=== PATIENT | male | born 1965 | race Caucasian/White ===

== ENCOUNTER 2019-05-18 19:45 | Emergency (ER) | payer OTHER, MEDICAID, SELFPAY ==
[2019-05-18] VITALS (29 sets, daily range): BP systolic 64–216; BP diastolic 39–158; PULSE 50–98; RESP 12–48; TEMP 32–36.8; O2SAT 92–100
--- NOTE | 2019-05-18 19:45 | DI.RAD.S_ITS ---
PROCEDURE: XR CHEST 1V INDICATIONS: Pulmonary edema TECHNIQUE: One view of the chest was acquired. COMPARISON: None. FINDINGS: Surgical changes and devices: Postsurgical changes are demonstrated in the mediastinum with multiple median sternotomy wires. Lungs and pleura: There are extensive bilateral interstitial opacities and pulmonary vascular prominence compatible with pulmonary edema. There are areas of confluence in the lung bases. No pleural effusions or pneumothorax. Mediastinum: Mediastinal contours appear prominent likely due to technique. Heart size is mildly enlarged. Bones and chest wall: No suspicious bony lesions. Overlying soft tissues appear unremarkable. IMPRESSION: 1. Extensive bilateral opacities consistent with a pulmonary edema. Findings may be cardiogenic or noncardiogenic in etiology such as from an atypical infection. Dictated by: Alok Herring M.D. on 05/18/2019 at 19:57 Approved by: Alok Herring M.D. on 05/18/2019 at 20:00
--- NOTE | 2019-05-18 19:49 | ED_ITS ---
HPI - SOB/Dyspnea General Chief Complaint: Shortness of Breath/Dyspnea Time Seen by Provider: 05/18/19 19:48 Source: patient Mode of arrival: Ambulatory Limitations: no limitations History of Present Illness HPI Narrative: The patient currently resides in a care facility adjacent to the hospital. Paramedics were called due to respiratory distress. The patient has no associated chest pain. He has a history of 2 presentations at [facility]. He required intubation previously. On the 2nd presentation he was found to have diffuse CAD, CABG was performed. He has been compliant with medications. He can communicate minimally verbally due to the face mask is wearing, but indicates he has not felt ill. He denies URI symptoms. He denies fever, cough or abdominal discomfort. Additionally has a history of diabetes, paroxysmal atrial fib, and morbid obesity. He can communicate little additional history due to the clinical situation. [facility] from [facility] have been reviewed. Related Data Home Medications Medication Instructions Recorded Confirmed amiodarone 200 mg PO BID 05/18/19 05/18/19 apixaban [Eliquis] 5 mg PO BID 05/18/19 05/18/19 atorvastatin 10 mg PO BEDTIME 05/18/19 05/18/19 metformin 500 mg PO BID 05/18/19 05/18/19 metoprolol tartrate 25 mg PO BID 05/18/19 05/18/19 omeprazole 20 mg PO DAILY 05/18/19 05/18/19 potassium chloride 10 meq PO DAILY 05/18/19 05/18/19 tadalafil 5 mg PO DAILY 05/18/19 05/18/19 Allergies Allergy/AdvReac Type Severity Reaction Status Date / Time Penicillins Allergy Unknown Verified 05/18/19 19:52 Review of Systems Review of Systems ROS Unobtainable: All systems reviewed & are unremarkable except as noted in HPI and below Patient History Medical History (Updated 05/19/19 @ 00:49 by Rome Carnes MD) CHF (congestive heart failure) (Acute) Chronic GERD (Acute) Diabetes (Acute) High cholesterol (Acute) Hypertension (Acute) Myocardial infarct (Acute) Obesity (Acute) Surgical History (Updated 05/19/19 @ 00:28 by Rome Carnes MD) Hx of CABG (Acute) S/P triple vessel bypass (Acute) Social History (Updated 05/19/19 @ 00:28 by Rome Carnes MD) Smoking Status: Never smoker substance use type: does not use Exam Initial Vital Signs Initial Vital Signs: Vital Signs Temperature 98.2 F 05/18/19 19:40 Pulse Rate 83 05/18/19 19:40 Respiratory Rate 44 H 05/18/19 19:40 Blood Pressure 177/85 H 05/18/19 19:40 Pulse Oximetry 92 05/18/19 19:40 Const Other: The patient is alert, is on a BiPAP facemask. He mumbles some answers, but mostly response by using his thumbs and nodding his head. He is pale and diaphoretic. HENMT Head: normal to inspection, normocephalic and atraumatic Mouth: oral mucosae normal Throat: posterior oropharynx normal and other (Frothy white or pharyngeal drainage.) Eyes Pupils: PERRL and pupil size on the right 5 and on the left 5 EOM: EOM intact bilaterally Neck Other: Obese neck, I cannot detect JVD. Chest Other: Symmetric rise. Resp Effort & Inspection: abnormal respiratory pattern (Tachypnea.) Auscultation: rales bilaterally throughout Cardio Rate: regular rate Rhythm: regular rhythm Heart Sounds: S1 normal, S2 normal, no click, no gallops, no murmurs and no rubs Pulses: normal peripheral pulses GI Inspection: non-distended and obesity Palpation: soft, no hepatosplenomegaly, No guarding and No tender Auscultation: normal bowel sounds Back/Spine/Pelvis Other: Normal to inspection Skin General: no rashes or lesions noted and pallor Neuro General: alert Other: Poor ability to communicate, but appropriate responses. Extrem General: full ROM and edema (4+ bilateral) Psych Other: Mentation appropriate given the clinical condition. Procedures Intubation Intubation Complications: other Additional Comments: I administered RSI. The optometry assistant crew to the transfer perform the actual intubation. Procedural Sedation Patient Age: Patient is 5yrs or older Consent signed: No Time out performed: Yes Indication: other (Emergent intubation) ASA Class: III Mallampati Airway Classification: Class II Preparation: hand compositor applied, pulse oximeter, capnometry used, supplemental O2 applied, reversal agents at bedside, suction/airway equipment at bedside and IV secured IV Etomidate dose (mg): 40 ED Sedation Level: Deep Patient Tolerated Procedure: Well Complications: none Additional Comments: Following the etomidate, the patient was paralyzed with succinylcholine 100 mg IV. The transferring optometry assistant considered intubation. The optometry assistant then completed the intubation with my oversight. A 7.5 ETT was placed on the 1st pass. Cords visualized, the ETT tube was visualized passing through the cords. Following intubation lungs are symmetric bilaterally. The appropriate color change was obtained on the ETT monitoring tube. O2 sats quickly increased upper 90s. Chest x-ray confirmed ET T placement. Course Course Course Narrative: The patient arrived in respiratory distress, he was on CPAP upon arrival. O2 sats were apparently as low as 80 when paramedics were summoned. He was in the low 90s on CPAP. He was converted to BiPAP. He initially improved to upper 90s. Care was initiated for CHF. He was quickly started on topical nitro, then IV Lasix was given. A 2nd IV was established and was changed to an IV drip with nitroglycerin. A Gamez was placed, revealing significant urine output. Despite the efforts his O2 gradually dropped. Although the patient indicated he thought it was done will better, his O2 sats decreased to 80% with BiPAP. The decision to intubate was made. The t ransporting paramedics were still with us in the ER. I made medicine decisions, but the leading optometry assistant who considered intubation prior to transfer completed the intubation. A 7.5 ETT was placed on the 1st attempt. White foam was noted continually coming from the lungs. His airway was suctioned after intubation, showing significant improvement in the respiratory findings on exam. The patien t was initially hypertensive systolic to 100. After RSI, his blood pressure fell. With attempted sedation. He could not tolerate propofol or midazolam. Even a minimal amount of fentanyl IV seem to impact him. His blood pressure dropped as low as 60s. He was given a bolus of IV fluids. Pressors were entertained. However, his blood pressure increased to 109/56 prior to transfer. The patient despite the RSI was responsive prior to discharge. He can squeeze my hand on command. He not had that his breathing was improved. He continues deny chest pain with a head motion. The situation was discussed with Dr. Bonilla, no call watch crystal cutter with [facility]. I also discussed the case with the supervisor composing room, Dr. Melendez. Dr. Melendez has accepted the patient. EKG, x-ray, and labs were discussed. Despite no history of URI, and no fever, infection is a concern. The patient has a subtle elevated WBC count, and a subtle increase in lactic acid level. Reassuring as a normal procalcitonin level. Inappropriate sepsis fluid bolus could not be administered due to clinical condition. He was given IV Levaquin 750 mg. his time in the ER was prolonged due to the management, then arranging transportation. Repeat EKGs show no significant changes. There was a subtle increase in a 2nd troponin. At the time of discharge the patient sinus Reymundo with a rate in the 50s. Although had issues with hypotension, his blood pressure at time of transfer is 109/56. I discussed concerns with hypotension, although now his blood pressure recovered I do not anticipate problems, with the transferring paramedics. Although the patient seems to improved significantly, they will follow their protocols if needed. Orders Ordered: ED Orders 05/18/19 19:45 XR chest 1V Stat EKG-12 Lead Stat 05/18/19 19:46 Complete Blood Count AUTO DIFF Stat Comprehensive Metabolic Panel Stat Lactate (Lactic Acid) Stat NT-proBNP (BNP-Adult 18+) Stat Partial Thromboplastin Time Stat Procalcitonin Stat Prothrombin Time INR Stat Troponin & CK Cardiac Panel Stat 05/18/19 19:48 BiPAP Ventilatory Support RT PROTOCOL 05/18/19 20:05 Arterial Blood Gas Stat 05/18/19 20:15 Urinalysis and Microscopic Stat 05/18/19 20:36 XR chest 1V Stat Ventilator Order 05/18/19 20:37 Endotracheal tube suction As needed 05/18/19 20:45 Sputum Culture DAILY 05/18/19 21:51 Arterial Blood Gas Routine 05/18/19 22:07 EKG-12 Lead Stat 05/18/19 22:20 Blood Culture Stat 05/18/19 22:41 Trop I [Troponin I] Stat 05/19/19 20:45 Complete Blood Count AUTO DIFF DAILY Comprehensive Metabolic Panel DAILY Sputum Culture DAILY 05/20/19 20:45 Complete Blood Count AUTO DIFF DAILY Comprehensive Metabolic Panel DAILY Sputum Culture DAILY 05/21/19 20:45 Complete Blood Count AUTO DIFF DAILY Comprehensive Metabolic Panel DAILY 05/22/19 20:45 Complete Blood Count AUTO DIFF DAILY Comprehensive Metabolic Panel DAILY 05/23/19 20:45 Complete Blood Count AUTO DIFF DAILY Comprehensive Metabolic Panel DAILY 05/24/19 20:45 Complete Blood Count AUTO DIFF DAILY Comprehensive Metabolic Panel DAILY 05/25/19 20:45 Complete Blood Count AUTO DIFF DAILY Comprehensive Metabolic Panel DAILY 05/26/19 20:45 Complete Blood Count AUTO DIFF DAILY Comprehensive Metabolic Panel DAILY 05/27/19 20:45 Complete Blood Count AUTO DIFF DAILY Comprehensive Metabolic Panel DAILY 05/28/19 20:45 Complete Blood Count AUTO DIFF DAILY Comprehensive Metabolic Panel DAILY 05/29/19 20:45 Complete Blood Count AUTO DIFF DAILY Comprehensive Metabolic Panel DAILY 05/30/19 20:45 Complete Blood Count AUTO DIFF DAILY Comprehensive Metabolic Panel DAILY 05/31/19 20:45 Complete Blood Count AUTO DIFF DAILY Comprehensive Metabolic Panel DAILY Nitroglycerin (Nitroglycerin) 50 mg in 250 mls @ 1.5 mls/hr IV TITRATE BENNY; Protocol Last Titration: 05/18/19 23:09 Dose: 0 mcg/min, 0 mls/hr Documented by: Titration: 05/18/19 21:00 Dose: 0 mcg/min, 0 mls/hr Documented by: Admin: 05/18/19 20:22 Dose: 5 mcg/min, 1.5 mls/hr Documented by: MADDISON Sodium Chloride (Normal Saline 0.9%) 1,000 mls @ 100 mls/hr IV BOLUS ONE Stop: 05/19/19 06:30 Last Infusion: 05/19/19 00:07 Dose: 100 mls/hr Documented by: Infusion: 05/18/19 23:36 Dose: 100 mls/hr Documented by: Infusion: 05/18/19 23:23 Dose: 999 mls/hr Documented by: Infusion: 05/18/19 22:40 Dose: 100 mls/hr Documented by: Infusion: 05/18/19 22:15 Dose: 999 mls/hr Documented by: Infusion: 05/18/19 21:20 Dose: 50 mls/hr Documented by: Admin: 05/18/19 20:30 Dose: 100 mls/hr Documented by: MADDISON Fentanyl 1,000 mcg/ Dextrose 270 mls @ 24.861 mls/hr IV TITRATE BENNY; Protocol Last Titration: 05/19/19 00:07 Dose: 0.7 mcg/kg/hr, 24.861 mls/hr Documented by: Titration: 05/18/19 23:38 Dose: 0.7 mcg/kg/hr, 24.861 mls/hr Documented by: Titration: 05/18/19 23:23 Dose: 0 mcg/kg/hr, 0 mls/hr Documented by: Titration: 05/18/19 23:01 Dose: 0.7 mcg/kg/hr, 24.861 mls/hr Documented by: Titration: 05/18/19 22:08 Dose: 1 mcg/kg/hr, 35.516 mls/hr Documented by: Admin: 05/18/19 21:11 Dose: 0.7 mcg/kg/hr, 24.861 mls/hr Documented by: MADDISON Propofol (Propofol) 1,000 mg in 100 mls @ 15.785 mls/hr IV TITRATE BENNY; Protocol Last Titration: 05/18/19 22:15 Dose: 0 mcg/kg/min, 0 mls/hr Documented by: Titration: 05/18/19 22:08 Dose: 20 mcg/kg/min, 15.785 mls/hr Documented by: Admin: 05/18/19 21:11 Dose: 20 mcg/kg/min, 15.785 mls/hr Documented by: MADDISON Discontinued Medications Etomidate (Amidate) 39.5 mg 0.3 mg/kg (39.5 mg) IV NOW ONE Stop: 05/18/19 20:37 Last Admin: 05/18/19 20:52 Dose: 39.5 mg Documented by: MADDISON Furosemide (Lasix) 40 mg IV NOW ONE Stop: 05/18/19 19:46 Last Admin: 05/18/19 19:52 Dose: 40 mg Documented by: MADDISON Piperacillin/Tazobactam/Dextrose (Zosyn) 3.375 gm in 50 mls @ 100 mls/hr IV NOW ONE Stop: 05/18/19 22:47 Last Admin: 05/18/19 22:46 Dose: Not Given Documented by: MADDISON Levofloxacin (Levaquin) 750 mg in 150 mls @ 100 mls/hr IV NOW ONE Stop: 05/19/19 00:15 Last Infusion: 05/19/19 00:07 Dose: 100 mls/hr Documented by: Admin: 05/18/19 22:53 Dose: 100 mls/hr Documented by: MADDISON Morphine Sulfate (Morphine) 2 mg IV NOW ONE Stop: 05/18/19 20:26 Last Admin: 05/18/19 20:43 Dose: 2 mg Documented by: MADDISON Nitroglycerin (Nitro-Bid) 1 inch TOP NOW ONE Stop: 05/18/19 19:46 Last Admin: 05/18/19 19:52 Dose: 1 inch Documented by: MADDISON Succinylcholine Chloride (Quelicin) 100 mg IV NOW ONE Stop: 05/18/19 20:37 Last Admin: 05/18/19 20:53 Dose: 100 mg Documented by: MADDISON Vital Signs Vital signs: Vital Signs - 8 hr 05/18/19 19:40 05/18/19 19:49 05/18/19 19:52 Temperature 98.2 F Pulse Rate 83 93 H Respiratory Rate 44 H Blood Pressure 177/85 H 216/113 H 207/111 H Blood Pressure [Right Arm] Pulse Oximetry 92 05/18/19 20:00 05/18/19 20:15 05/18/19 20:22 Temperature Pulse Rate 92 H 85 83 Respiratory Rate 48 H 37 H Blood Pressure 177/85 H Blood Pressure [Right Arm] 210/158 H 191/85 H Pulse Oximetry 94 98 05/18/19 20:30 05/18/19 20:45 05/18/19 20:55 Temperature Pulse Rate 80 80 76 Respiratory Rate 35 H 39 H Blood Pressure Blood Pressure [Right Arm] 156/69 H 152/72 H 120/57 L Pulse Oximetry 98 98 05/18/19 21:00 05/18/19 21:15 05/18/19 21:30 Temperature Pulse Rate 66 68 61 Respiratory Rate 29 H 24 Blood Pressure Blood Pressure [Right Arm] 83/54 L 111/61 90/52 L Pulse Oximetry 100 95 95 05/18/19 21:40 05/18/19 21:55 05/18/19 22:09 Temperature Pulse Rate 63 60 60 Respiratory Rate 28 H 20 20 Blood Pressure Blood Pressure [Right Arm] 86/54 L 122/90 80/46 L Pulse Oximetry 95 95 95 05/18/19 22:17 02/02/20 22:24 05/18/19 22:35 Temperature Pulse Rate 57 L 56 L 58 L Respiratory Rate 22 20 23 Blood Pressure Blood Pressure [Right Arm] 64/39 L 71/47 L 87/53 L Pulse Oximetry 96 95 94 05/18/19 22:44 05/18/19 23:03 05/18/19 23:10 Temperature Pulse Rate 56 L 50 L 52 L Respiratory Rate 20 20 20 Blood Pressure Blood Pressure [Right Arm] 91/54 L 79/50 L 81/53 L Pulse Oximetry 96 95 98 05/18/19 23:17 05/18/19 23:19 05/18/19 23:29 Temperature Pulse Rate 51 L 52 L 51 L Respiratory Rate 20 20 20 Blood Pressure Blood Pressure [Right Arm] 78/50 L 81/49 L 82/51 L Pulse Oximetry 98 98 98 05/18/19 23:32 05/18/19 23:38 05/18/19 23:42 Temperature Pulse Rate 50 L 52 L 53 L Respiratory Rate 20 20 20 Blood Pressure Blood Pressure [Right Arm] 85/53 L 89/54 L 91/56 L Pulse Oximetry 98 98 98 05/18/19 23:47 05/18/19 23:50 Temperature Pulse Rate 53 L 59 L Respiratory Rate 20 20 Blood Pressure Blood Pressure [Right Arm] 96/59 L 109/56 L Pulse Oximetry 98 98 MDM - SOB/Dyspnea Lab Data Result diagrams: 05/18/19 19:46 05/18/19 19:46 Labs: Lab Results 05/18/19 05/18/19 05/18/19 Range/Units 19:46 19:46 19:46 WBC 13.8 H (4.5-11.0) X10^3/uL RBC 5.34 (4.5-5.9) X10^6/uL Hgb 15.4 (13.5-17.5) g/dL Hct 47.5 (41-53) % MCV 89.1 (80-100) fL MCH 28.8 (26-34) PG MCHC 32.4 (30-36) % RDW 14.6 (11.6-14.8) % Plt Count 315 (150-400) X10^3/uL Neut % (Auto) 53.7 (50-75) % Lymph % (Auto) 30.4 (25-40) % [place] % (Auto) 10.2 (3-14) % Eos % (Auto) 4.7 H (2-4) % Baso % (Auto) 1.0 (0-2) % Neut # (Auto) 7400 H (5644-7286) /uL Lymph # (Auto) 4200 (3292-0133) /uL [place] # (Auto) 1400 H (0-900) /uL Eos # (Auto) 600 H (0-450) /uL Baso # (Auto) 100 (0-100) /uL PT 12.7 (10.1-12.7) SECONDS INR 1.1 (0.9-1.3) APTT 32 (26.4-36.2) SECONDS ABG pH (7.35-7.45) ABG pCO2 (35-45) mmHg ABG pO2 (80-100) mmHg ABG HCO3 (22-26) mmol/L ABG Total CO2 (21-31) mmol/L ABG O2 Saturation (95-100) % ABG Base Excess (-2-2) mmol/L FiO2 Sodium 141 (137-145) mmol/L Potassium 4.0 (3.4-5.1) mmol/L Chloride 102 (98-107) mmol/L Carbon Dioxide 25 (22-32) mmol/L BUN 17 (9-20) mg/dL Creatinine 1.00 (0.66-1.25) mg/dL Estimated GFR > 60.0 (>60) mL/min BUN/Creatinine Ratio 17.0 (6-22) Glucose 156 H (70-100) mg/dL Lactate (0.7-2.1) mmol/L Calcium 10.1 (8.4-10.2) mg/dL Total Bilirubin 0.8 (0.2-1.3) mg/dL AST 51 (17-59) IU/L ALT 40 (<50) IU/L Alkaline Phosphatase 228 H (38-126) U/L Total Creatine Kinase 83 (55-170) U/L CK-MB (CK-2) TNP CK-MB (CK-2) Rel Index TNP Troponin I < 0.012 (0.01-0.034) ng/mL NT-Pro-B Natriuret Pep 559 H (<125) pg/mL Total Protein 9.7 H* (6.3-8.2) g/dL Albumin 5.2 H (3.5-5.0) g/dL Globulin 4.5 H (1.7-4.1) g/dL Albumin/Globulin Ratio 1.2 (1.0-2.8) Procalcitonin (<0.5) ng/mL Urine Color Urine Appearance Urine pH (4.5-8.0) Ur Specific [place] (1.000-1.035) Urine Protein (Negative) Urine Glucose (UA) (Negative) g/dL Urine Ketones (NEGATIVE) Urine Occult Blood (Negative) Urine Nitrate (Negative) Urine Bilirubin (NEGATIVE) Urine Urobilinogen (0.2) E.U./dL Ur Leukocyte Esterase (NEGATIVE) Urine RBC (0-5/HPF) Urine WBC (0-5/HPF) Urine Bacteria (None) Ur Culture Indicated? 05/18/19 05/18/19 05/18/19 Range/Units 19:46 19:46 20:05 WBC (4.5-11.0) X10^3/uL RBC (4.5-5.9) X10^6/uL Hgb (13.5-17.5) g/dL Hct (41-53) % MCV (80-100) fL MCH (26-34) PG MCHC (30-36) % RDW (11.6-14.8) % Plt Count (150-400) X10^3/uL Neut % (Auto) (50-75) % Lymph % (Auto) (25-40) % [place] % (Auto) (3-14) % Eos % (Auto) (2-4) % Baso % (Auto) (0-2) % Neut # (Auto) (4877-8732) /uL Lymph # (Auto) (2739-0126) /uL [place] # (Auto) (0-900) /uL Eos # (Auto) (0-450) /uL Baso # (Auto) (0-100) /uL PT (10.1-12.7) SECONDS INR (0.9-1.3) APTT (26.4-36.2) SECONDS ABG pH 7.21 L* (7.35-7.45) ABG pCO2 65.3 H* (35-45) mmHg ABG pO2 105 H (80-100) mmHg ABG HCO3 26 (22-26) mmol/L ABG Total CO2 28 (21-31) mmol/L ABG O2 Saturation 96 (95-100) % ABG Base Excess -1.0 (-2-2) mmol/L FiO2 60 Sodium (137-145) mmol/L Potassium (3.4-5.1) mmol/L Chloride (98-107) mmol/L Carbon Dioxide (22-32) mmol/L BUN (9-20) mg/dL Creatinine (0.66-1.25) mg/dL Estimated GFR (>60) mL/min BUN/Creatinine Ratio (6-22) Glucose (70-100) mg/dL Lactate 2.8 H (0.7-2.1) mmol/L Calcium (8.4-10.2) mg/dL Total Bilirubin (0.2-1.3) mg/dL AST (17-59) IU/L ALT (<50) IU/L Alkaline Phosphatase (38-126) U/L Total Creatine Kinase (55-170) U/L CK-MB (CK-2) CK-MB (CK-2) Rel Index Troponin I (0.01-0.034) ng/mL NT-Pro-B Natriuret Pep (<125) pg/mL Total Protein (6.3-8.2) g/dL Albumin (3.5-5.0) g/dL Globulin (1.7-4.1) g/dL Albumin/Globulin Ratio (1.0-2.8) Procalcitonin < 0.05 (<0.5) ng/mL Urine Color Urine Appearance Urine pH (4.5-8.0) Ur Specific [place] (1.000-1.035) Urine Protein (Negative) Urine Glucose (UA) (Negative) g/dL Urine Ketones (NEGATIVE) Urine Occult Blood (Negative) Urine Nitrate (Negative) Urine Bilirubin (NEGATIVE) Urine Urobilinogen (0.2) E.U./dL Ur Leukocyte Esterase (NEGATIVE) Urine RBC (0-5/HPF) Urine WBC (0-5/HPF) Urine Bacteria (None) Ur Culture Indicated? 05/18/19 05/18/19 05/18/19 Range/Units 20:15 21:51 22:41 WBC (4.5-11.0) X10^3/uL RBC (4.5-5.9) X10^6/uL Hgb (13.5-17.5) g/dL Hct (41-53) % MCV (80-100) fL MCH (26-34) PG MCHC (30-36) % RDW (11.6-14.8) % Plt Count (150-400) X10^3/uL Neut % (Auto) (50-75) % Lymph % (Auto) (25-40) % [place] % (Auto) (3-14) % Eos % (Auto) (2-4) % Baso % (Auto) (0-2) % Neut # (Auto) (0232-6169) /uL Lymph # (Auto) (3813-5919) /uL [place] # (Auto) (0-900) /uL Eos # (Auto) (0-450) /uL Baso # (Auto) (0-100) /uL PT (10.1-12.7) SECONDS INR (0.9-1.3) APTT (26.4-36.2) SECONDS ABG pH 7.34 L (7.35-7.45) ABG pCO2 45.6 H (35-45) mmHg ABG pO2 69 L (80-100) mmHg ABG HCO3 25 (22-26) mmol/L ABG Total CO2 26 (21-31) mmol/L ABG O2 Saturation 92 L (95-100) % ABG Base Excess -1.0 (-2-2) mmol/L FiO2 0.5 Sodium (137-145) mmol/L Potassium (3.4-5.1) mmol/L Chloride (98-107) mmol/L Carbon Dioxide (22-32) mmol/L BUN (9-20) mg/dL Creatinine (0.66-1.25) mg/dL Estimated GFR (>60) mL/min BUN/Creatinine Ratio (6-22) Glucose (70-100) mg/dL Lactate (0.7-2.1) mmol/L Calcium (8.4-10.2) mg/dL Total Bilirubin (0.2-1.3) mg/dL AST (17-59) IU/L ALT (<50) IU/L Alkaline Phosphatase (38-126) U/L Total Creatine Kinase (55-170) U/L CK-MB (CK-2) CK-MB (CK-2) Rel Index Troponin I 0.065 H (0.01-0.034) ng/mL NT-Pro-B Natriuret Pep (<125) pg/mL Total Protein (6.3-8.2) g/dL Albumin (3.5-5.0) g/dL Globulin (1.7-4.1) g/dL Albumin/Globulin Ratio (1.0-2.8) Procalcitonin (<0.5) ng/mL Urine Color Yellow Urine Appearance Clear Urine pH 7.0 (4.5-8.0) Ur Specific [place] 1.015 (1.000-1.035) Urine Protein 3+ H (Negative) Urine Glucose (UA) Negative (Negative) g/dL Urine Ketones Negative (NEGATIVE) Urine Occult Blood Trace-intact (Negative) Urine Nitrate Negative (Negative) Urine Bilirubin Negative (NEGATIVE) Urine Urobilinogen 0.2 (0.2) E.U./dL Ur Leukocyte Esterase Negative (NEGATIVE) Urine RBC 0-1/hpf (0-5/HPF) Urine WBC 1-5/hpf (0-5/HPF) Urine Bacteria None seen (None) Ur Culture Indicated? Cult not indicated 05/18/19 Range/Units 22:41 WBC (4.5-11.0) X10^3/uL RBC (4.5-5.9) X10^6/uL Hgb (13.5-17.5) g/dL Hct (41-53) % MCV (80-100) fL MCH (26-34) PG MCHC (30-36) % RDW (11.6-14.8) % Plt Count (150-400) X10^3/uL Neut % (Auto) (50-75) % Lymph % (Auto) (25-40) % [place] % (Auto) (3-14) % Eos % (Auto) (2-4) % Baso % (Auto) (0-2) % Neut # (Auto) (1258-7707) /uL Lymph # (Auto) (8931-1011) /uL [place] # (Auto) (0-900) /uL Eos # (Auto) (0-450) /uL Baso # (Auto) (0-100) /uL PT (10.1-12.7) SECONDS INR (0.9-1.3) APTT (26.4-36.2) SECONDS ABG pH (7.35-7.45) ABG pCO2 (35-45) mmHg ABG pO2 (80-100) mmHg ABG HCO3 (22-26) mmol/L ABG Total CO2 (21-31) mmol/L ABG O2 Saturation (95-100) % ABG Base Excess (-2-2) mmol/L FiO2 Sodium (137-145) mmol/L Potassium (3.4-5.1) mmol/L Chloride (98-107) mmol/L Carbon Dioxide (22-32) mmol/L BUN (9-20) mg/dL Creatinine (0.66-1.25) mg/dL Estimated GFR (>60) mL/min BUN/Creatinine Ratio (6-22) Glucose (70-100) mg/dL Lactate 2.4 H (0.7-2.1) mmol/L Calcium (8.4-10.2) mg/dL Total Bilirubin (0.2-1.3) mg/dL AST (17-59) IU/L ALT (<50) IU/L Alkaline Phosphatase (38-126) U/L Total Creatine Kinase (55-170) U/L CK-MB (CK-2) CK-MB (CK-2) Rel Index Troponin I (0.01-0.034) ng/mL NT-Pro-B Natriuret Pep (<125) pg/mL Total Protein (6.3-8.2) g/dL Albumin (3.5-5.0) g/dL Globulin (1.7-4.1) g/dL Albumin/Globulin Ratio (1.0-2.8) Procalcitonin (<0.5) ng/mL Urine Color Urine Appearance Urine pH (4.5-8.0) Ur Specific [place] (1.000-1.035) Urine Protein (Negative) Urine Glucose (UA) (Negative) g/dL Urine Ketones (NEGATIVE) Urine Occult Blood (Negative) Urine Nitrate (Negative) Urine Bilirubin (NEGATIVE) Urine Urobilinogen (0.2) E.U./dL Ur Leukocyte Esterase (NEGATIVE) Urine RBC (0-5/HPF) Urine WBC (0-5/HPF) Urine Bacteria (None) Ur Culture Indicated? Point of Care Testing Glucose POC 136 Imaging Data Chest x-ray: Radiologist's Impression: [address] [address] XRay Report Signed Patient: Morgan Salas#: [id number] : 1965Acct:[id number] Age/Sex: 53 / MDate of Service: 05/18/19 Loc: ED Accession Number: [id number] Procedure: XR chest 1V Ordering Provider: Rome Carnes MD PROCEDURE: XR CHEST 1V INDICATIONS: Pulmonary edema TECHNIQUE: One view of the chest was acquired. COMPARISON: None. FINDINGS: Surgical changes and devices: Postsurgical changes are demonstrated in the mediastinum with multiple median sternotomy wires. Lungs and pleura: There are extensive bilateral interstitial opacities and pulmonary vascular prominence compatible with pulmonary edema. There are areas of confluence in the lung bases. No pleural effusions or pneumothorax. Mediastinum: Mediastinal contours appear prominent likely due to technique. Heart size is mildly enlarged. Bones and chest wall: No suspicious bony lesions. Overlying soft tissues appear unremarkable. IMPRESSION: 1. Extensive bilateral opacities consistent with a pulmonary edema. Findings may be cardiogenic or noncardiogenic in etiology such as from an atypical infection. Dictated by: Alok Herring M.D. on 05/18/2019 at 19:57 Approved by: Alok Herring M.D. on 05/18/2019 at 20:00 Post intubation CXR:: Radiologist's Impression: The x-ray was reviewed by Radiology. ETT placement was confirmed. NG placement was confirmed. Evidence of CHF remains. Critical Care Time Critical Care Time Critical Care Time: Yes Total Critical Care Time: 60 Attestation: Critical care time included initial patient assessment, records review and multiple reassessments. Time included multiple clinical decisions, review of EKG, hand compositor, lab and chest x-ray data, and a visual consultation with Cardiology and accepting Packing Room Worker. The patient was made aware of the intent to transfer prior to intubation. Discharge Plan Departure Patient Disposition: [facility] Clinical Impression: Elevated lactic acid level Respiratory failure with hypoxia and hypercapnia Qualifiers: Chronicity: acute Qualified Code(s): J96.01 - Acute respiratory failure with hypoxia Congestive heart failure Qualifiers: Heart failure type: diastolic Heart failure chronicity: acute Qualified Code(s): I50.31 - Acute diastolic (congestive) heart failure Prescriptions: No Action metformin 500 mg Tablet 500 mg PO BID RF: 0 atorvastatin 10 mg Tablet 10 mg PO BEDTIME RF: 0 amiodarone 200 mg Tablet 200 mg PO BID RF: 0 potassium chloride 10 mEq Tablet Extended Release 10 meq PO DAILY RF: 0 omeprazole 20 mg Capsule,Delayed Release(Dr/Ec) 20 mg PO DAILY RF: 0 tadalafil 5 mg Tablet 5 mg PO DAILY RF: 0 metoprolol tartrate 25 mg Tablet 25 mg PO BID RF: 0 Eliquis 5 mg Tablet 5 mg PO BID RF: 0
[2019-05-18] MEDS: NITROGLYCERIN OINT 1 INCH/GM OINT...G. TOP (19:52)
[2019-05-18] MEDS: FUROSEMIDE 40 MG/4 ML VIAL IV (19:52)
[2019-05-18 20:05] LABS: Add Manual Diff / Slide Review NO; Basophils Absolute Auto 100 /uL (0-100); Eosinophils Absolute Auto 600 /uL (0-450); Eosinophils Percent Auto 4.7 % (2-4); Hematocrit 47.5 % (41-53); Hemoglobin 15.4 g/dL (13.5-17.5); Lymphocytes Absolute Auto 4200 /uL (1100-4500); Lymphocytes Percent Auto 30.4 % (25-40); Mean Corpuscular HGB Conc 32.4 % (30-36); Mean Corpuscular Hemoglobin 28.8 PG (26-34); Mean Corpuscular Volume 89.1 fL (80-100); Monocytes Absolute Auto 1400 /uL (0-900); Monocytes Percent Auto 10.2 % (3-14); Neutrophils Absolute Auto 7400 /uL (1500-7000); Neutrophils Percent Auto 53.7 % (50-75); Platelet Count 315 X10^3/uL (150-400); Red Blood Cell Count 5.34 X10^6/uL (4.5-5.9); Red Cell Distribution Width 14.6 % (11.6-14.8); White Blood Cell Count 13.8 X10^3/uL (4.5-11.0)
[2019-05-18 20:13] LABS: PCO2 ABG 65.3 mmHg (35-45)
[2019-05-18 20:14] LABS: Fractionated Inspired Oxygen 60; HCO3 ABG 26 mmol/L (22-26); Oxygen Saturation ABG 96 % (95-100); PO2 ABG 105 mmHg (80-100); TCO2 ABG 28 mmol/L (21-31); pH ABG 7.21 (7.35-7.45)
[2019-05-18 20:21] LABS: PTT Partial Thromboplastin Tim 32 SECONDS (26.4-36.2)
[2019-05-18] MEDS: NITROGLYCERIN 50 MG/250 ML INFUS..BTL IV (20:22)
[2019-05-18 20:23] LABS: Alanine Aminotransferase 40 IU/L (<50); Albumin 5.2 g/dL (3.5-5.0); Alkaline Phosphatase 228 U/L (38-126); Aspartate Aminotransferase 51 IU/L (17-59); Bilirubin Total 0.8 mg/dL (0.2-1.3); Blood Urea Nitrogen 17 mg/dL (9-20); Calcium 10.1 mg/dL (8.4-10.2); Carbon Dioxide 25 mmol/L (22-32); Chloride 102 mmol/L (98-107); Creatine Kinase 83 U/L (55-170); Estimated Glomerular Filt Rate > 60.0 mL/min (>60); Glucose 156 mg/dL (70-100); HEMOLYSIS 20 (0-50); Sodium 141 mmol/L (137-145)
[2019-05-18] MEDS: SODIUM CHLORIDE 0.9% 1,000 ML 100 ML IV (20:30)
[2019-05-18 20:32] LABS: INR 1.1 (0.9-1.3); Prothrombin Time 12.7 SECONDS (10.1-12.7)
[2019-05-18 20:35] LABS: NT-proBNP (BNP-Adult 18+) 559 pg/mL (<125); Troponin I < 0.012 ng/mL (0.01-0.034)
--- NOTE | 2019-05-18 20:36 | DI.RAD.S_ITS ---
PROCEDURE: XR CHEST 1V INDICATIONS: post intubation/NG tube placement TECHNIQUE: One view of the chest was acquired. COMPARISON: [facility], CR, XR CHEST 1V, 05/18/2019, 19:32. FINDINGS: Surgical changes and devices: There is a nasogastric tube extending into the stomach with the tip not included on current study. The distal aspect of an endotracheal tube is demonstrated with the tip approximately 5 cm from the mahendra. Postsurgical changes are again noted in the mediastinum. Lungs and pleura: The lung apices and left costophrenic angle are incompletely included on the current study. There is bilateral pulmonary edema redemonstrated. Mediastinum: Mediastinal contours appear unchanged. Heart size is enlarged. Bones and chest wall: No suspicious bony lesions. Overlying soft tissues appear unremarkable. IMPRESSION: 1. Limited study demonstrates new endotracheal and nasogastric tubes. 2. Pulmonary edema redemonstrated bilaterally. Dictated by: Alok Herring M.D. on 05/18/2019 at 21:33 Approved by: Alok Herring M.D. on 05/18/2019 at 21:35
[2019-05-18 20:37] LABS: Albumin Globulin Ratio 1.2 (1.0-2.8); Globulin 4.5 g/dL (1.7-4.1)
[2019-05-18] MEDS: MORPHINE 2 MG/ML INJ IV (20:43)
--- NOTE | 2019-05-18 20:45 | PC.NURSE ---
NTG topical discontinued at time of ntg gtt start.
[2019-05-18] MEDS: ETOMIDATE 2 MG/ML 10 ML VIAL 39.5 MG IV (20:52)
[2019-05-18] MEDS: SUCCINYLCHOLINE 200 MG/10 ML VIAL 100 MG IV (20:53)
[2019-05-18 20:54] LABS: Total Protein 9.7 g/dL (6.3-8.2)
[2019-05-18] MEDS: propofoL 1,000 MG/100 ML VIAL 15.785 MG IV (21:11)
[2019-05-18] MEDS: fentaNYL 1,000 MCG in DEXTROSE 5% IN WATER 250 ML 24.861 ML IV (21:11)
[2019-05-18 21:17] LABS: Lactate (Lactic Acid) 2.8 mmol/L (0.7-2.1)
[2019-05-18 21:25] LABS: Procalcitonin < 0.05 ng/mL (<0.5)
--- NOTE | 2019-05-18 21:30 | PC.NURSE ---
2100: RSI performed. 7.5 ETT placed; 25 cm @ teeth. + bilateral breath sounds, no breath sounds over gastric area.
[2019-05-18 22:04] LABS: HCO3 ABG 25 mmol/L (22-26); Oxygen Saturation ABG 92 % (95-100); PCO2 ABG 45.6 mmHg (35-45); PO2 ABG 69 mmHg (80-100); TCO2 ABG 26 mmol/L (21-31); pH ABG 7.34 (7.35-7.45)
[2019-05-18 22:05] LABS: Fractionated Inspired Oxygen 0.5
[2019-05-18] MEDS: MIDAZOLAM 5 MG/ML VIAL (22:05)
--- NOTE | 2019-05-18 22:05 | PC.NURSE ---
Q5 min vital signs printed on paper, please see for full sets.
[2019-05-18 22:47] LABS: Bacteria Urine None Seen
[2019-05-18 22:50] LABS: Reflexed Lactate in 2 Hours Y
[2019-05-18] MEDS: levoFLOXacin 750 MG/150 ML PIGGYBACK 100 MG IV (22:53)
[2019-05-18 22:54] LABS: Appearance Urine UA CLEAR; Bilirubin Urine UA NEGATIVE (NEGATIVE); Color Urine UA YELLOW; Glucose Urine UA NEGATIVE (Negative); Ketones Urine UA NEGATIVE (NEGATIVE); Leukocyte Esterase Urine UA NEGATIVE (NEGATIVE); Nitrite Urine UA NEGATIVE (Negative); Occult Blood Urine UA TRACE-INTACT (Negative); Protein Urine UA 3+ (Negative); Specific Gravity Urine UA 1.015 (1.000-1.035); Urobilinogen Urine UA 0.2 E.U./dL (0.2)
[2019-05-18 23:05] LABS: RBC Urine 0-1/HPF (0-5/HPF); WBC Urine 1-5/HPF (0-5/HPF)
[2019-05-18 23:06] LABS: Culture Indicated Urine Cult Not Indicated
[2019-05-18 23:20] LABS: Lactate 2HR (Lactic Acid Rflx) 2.4 mmol/L (0.7-2.1)
[2019-05-18 23:30] LABS: Troponin I 0.065 ng/mL (0.01-0.034)
== END 2019-05-19 00:07 | disposition short-term general hospital (02) ==
PROVIDERS: Emergency Provider Emergency Medicine
DX: J96.01 Acute respiratory failure with hypoxia (principal); I50.31 Acute diastolic (congestive) heart failure; R79.89 Other specified abnormal findings of blood chemistry; I95.9 Hypotension, unspecified; E11.9 Type 2 diabetes mellitus without complications; E66.9 Obesity, unspecified
CPT/HCPCS: 31500; 36415; 36600; 51701; 71045; 80053; 81001; 82550; 82805; 82962; 83605; 83880; 84145; 84484; 85025; 85610; 85730; 87040; 93005; 94770; 96365; 96366; 96367; 96368; 96375; 99285; 99291; 99292; J0330; J1940; J1956; J2250; J2270; J2704; J3010